=== PATIENT | female | born 1960 | race Caucasian/White ===

== ENCOUNTER 2018-10-19 08:40 | Outpatient (CLI) | payer OTHER ==
[2018-10-19] VITALS (13 sets, daily range): BP systolic 93–171; BP diastolic 57–87
[~2018-10-19] VITALS: Ht 154.9 cm; Wt 72.6 kg
[2018-10-19] MEDS ORDERED: IBUP-1027 PO (08:59)
[2018-10-19] MEDS ORDERED: ASPI-630 PO (08:59)
[2018-10-19] MEDS ORDERED: ATOR20TA58 PO (08:59)
[2018-10-19] MEDS ORDERED: LISI10TA2 PO (08:59)
[2018-10-19] MEDS ORDERED: NITR0.4T22 SL (08:59)
[2018-10-19 09:11] LABS: RED BLOOD COUNT 4.55 x10^6/uL (3.50-5.40); WHITE BLOOD COUNT 7.3 x10^3/uL (4.0-11.0)
[2018-10-19 09:12] LABS: HEMATOCRIT 42.6 % (36.0-47.0); HEMOGLOBIN 14.4 g/dL (12.0-15.5); RED CELL DISTRIBUTION WIDTH 14.2 % (11.5-14.5)
[2018-10-19 09:21] LABS: CALCIUM 9.1 mg/dL (8.5-10.1); CREATININE 0.7 mg/dL (0.6-1.0); GFR 86.2; POTASSIUM 4.1 mmol/L (3.5-5.1)
[2018-10-19 09:22] LABS: PROTHROMBIN TIME PATIENT 12.9 SEC (11.7-14.0)
[2018-10-19] MEDS ORDERED: IODIXANOL 320 MG/ML 100 ML VIAL. ONE (09:26)
[2018-10-19] MEDS ORDERED: LIDOCAINE 1% Multi-Dose 20 ML VIAL. ONE ×2 (09:26→09:31)
[2018-10-19] MEDS ORDERED: MIDAZOLAM HCL/PF 2 MG/2 ML VIAL. ONE ×2 (09:43→10:02)
[2018-10-19] MEDS ORDERED: HEPARIN for IV BOLUS 10,000 UNIT/10 ML VIAL. ONE (09:43)
[2018-10-19] MEDS ORDERED: VERAPAMIL 5 MG/2 ML VIAL. ONE (09:43)
[2018-10-19] MEDS ORDERED: fentaNYL PF VIAL 100 MCG/2 ML VIAL ONE (09:43)
[2018-10-19] MEDS ORDERED: NITROGLYCERIN 200 MCG/2 ML SYRINGE FOR CATH/VASC LAB. ONE ×2 (09:43→10:35)
--- NOTE | 2018-10-19 09:50 | PDOC ---
MODERATE SEDATION ASSESSMENT RISKS/ALTERNATIVES Risks/Alternatives Risks and alternatives of this type of sedation and procedure discussed with: RISK/ALTERNATIVES: Patient H & P ON CHART H & P H & P on chart and reviewed for co-morbid conditions and appropriate labs. H&P ON CHART: Yes STATUS PREG STATUS ASSESSED: N/A MEDS/ALLERGIES REVIEWED Meds/Allergies Reviewed Medications and Allergies including time and route of recently administered narcotics and sedatives. MEDS/ALLERGIES REVIEWED: Yes ASA RATING ASA RATING: II AIRWAY ASSESSMENT Airway Assessment Airway patency, oral function limitations, presence of caps, crowns, dentures, partials, and ability to extend neck assessed. AIRWAY ASSESSMENT: Yes MALLAMPATI SCORE MALLAMPATI SCORE: II PRE-SEDATION ASSESSMENT PRE-SEDATION ASSESSMENT: Yes DERICK GRANDE MD Oct 19, 2018 09:50
[2018-10-19] MEDS ORDERED: IODIXANOL 320 MG/ML 100 ML VIAL. IART ONE (10:30)
[2018-10-19] MEDS ORDERED: HEPARIN for IV BOLUS 10,000 UNIT/10 ML VIAL. IV ONE (10:30)
[2018-10-19] MEDS ORDERED: NITROGLYCERIN 200 MCG/2 ML SYRINGE FOR CATH/VASC LAB. IART ONE ×2 (10:30)
[2018-10-19] MEDS ORDERED: MIDAZOLAM HCL/PF 2 MG/2 ML VIAL. IV ONE (10:30)
[2018-10-19] MEDS ORDERED: HEPARIN for IV BOLUS 10,000 UNIT/10 ML VIAL. IART ONE (10:30)
[2018-10-19] MEDS ORDERED: fentaNYL PF VIAL 100 MCG/2 ML VIAL IV ONE (10:30)
[2018-10-19] MEDS ORDERED: CONTRAST GIVEN. MC PRN (10:30)
[2018-10-19] MEDS ORDERED: LIDOCAINE 1% PF 2 ML VIAL. INJ ONE (10:30)
[2018-10-19] MEDS ORDERED: LIDOCAINE 1% Multi-Dose 20 ML VIAL. INJ ONE (10:30)
[2018-10-19] MEDS ORDERED: VERAPAMIL 5 MG/2 ML VIAL. IART ONE (10:30)
--- NOTE | 2018-10-19 11:06 | CARD ---
MR#: [id number] Date of Study: 10/19/2018 Ordering Physician: DERICK CHRISTINE, Referring Physician: DERICK CHRISTINE, Tech: Jacey Blair RTR APPROVED REPORT Technologist: Jacey Blair RTR Nurse: Maria T Howell R.N. Procedure(s) performed: Moderate Sedation time: 42 minutes CSHA: 4 Coronary angiography, iFR of the LAD. HISTORY : The patient is a 58 year-old female with a history of . INDICATION The indication(s) include : unstable angina . PROCEDURE NARRATIVE INFORMED CONSENT: After explaining the risks and benefits of the procedure and alternatives, informed consent was obtained. The patient was brought electively to the cardiac catheterization lab. A timeout was performed confi rming the patient's name, date of , procedure, and site of procedure. All necessary personnel w ere wearing the appropriate protective equipment and radiation monitor devices. (See nursing notes for medications administered). ACCESS: The right wrist was sterilely prepped and draped in the usual fashion. The right wrist was infiltrat ed with 1 mL of 2% lidocaine for subcutaneous anesthesia. A 6 [place] Terumo glide sheath was inserte d into the right radial artery without difficulty. CORONARY ANGIOGRAPHY: Right and left coronary angiography was performed using a 6Fr TIG 4.0 catheter. Left ventricular en d diastolic pressure was obtained with a pigtail catheter and pullback was performed after left ventr iculography. All catheter exchanges and advancements were performed over a guidewire. FINDINGS: HEMODYNAMICS: AO: 140/70 LEFT VENTRICULOGRAM: Deferred due to known EF by echo. CORONARY ANGIOGRAPHY: LM is a large caliber vessel with normal angiographic appearance. LAD is a moderate caliber vessel wthat tapers to a small size in the mid segment with a 50% stenosis. D1 is a small caliber vessel with normal angiographic appearance. LCx is a moderate caliber non-dominant vessel with normal angiographic appearance. OM1 is a moderate caliber vessel with normal angiographic appearance. RCA is a large caliber dominant vessel with mild luminal irregularities of up to 20%. RPDA and RPL are small caliber vessels with normal angiographic appearance. INTERVENTIONAL TECHNIQUE: Due to intermediate disease in the LAD with chest pain, an iFR study was performed. Heparin was used for anticoagulation. Through a 6Fr EBU 3.0 guide catheter, a 0.014'' Pressure wire was advanced to t he distal LAD after appropriate normalization and intracoronary NTG administration. An iFR was measur ed at 0.90, therefore further intervention was deferred. Final angiography revealed no evidence of gu marlon or wire related complications. CLOSURE: At case completion the right radial sheath was removed and a Terumo radial band was applied with 11 m l of air. COMPLICATIONS: The patient tolerated the procedure well and there were no immediate complications. Conclusion 1. 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 2. Negative iFR of the LAD at 0.90. Recommendations Aggressive medical therapy. Signed by : Derick Christine, Electronically Approved : 10/19/2018 11:04:36
[2018-10-19] MEDS ORDERED: NITROGLYCERIN SUBLINGUAL 0.4 MG BOTTLE OF 25. SL PRN (11:15)
[2018-10-19] MEDS ORDERED: 0.9 % SODIUM CHLORIDE 10 ML DISP.SYRIN. IV PRN (11:15)
[2018-10-19 13:13] LABS: CHOLESTEROL/HDL RATIO 2.6
[2018-10-19] MEDS ORDERED: RANO500T2 PO (13:31)
--- NOTE | 2018-10-19 13:50 | NUR ---
Discharge Note: CHETNA OLSON Discharge instructions and discharge home medications reviewed with Patient and a copy given. All questions have been answered and understanding verbalized. The following instructions and handouts were given: moderate sedation and radial site care Discontinued lines and drains: Peripheral IV intact. Patient discharged to Home or Self Care withFamily Membervia Wheelchair Prescription for Ranexa given to patient and information packet/coupon.
--- NOTE | 2018-10-19 14:16 | CARD ---
MR#: [id number] Date of Study: 10/19/2018 Ordering Physician: DERICK GRANDE, Referring Physician: DERICK GRANDE, Tech: Ainsley Harrington [facility] APPROVED REPORT EXAM: Two-dimensional and M-mode echocardiogram with Doppler and color Doppler. Other Information Quality : AverageHR: 59bpm Rhythm : NSRTechnically limited study due to body habitus. INDICATION Chest Pain 2D DIMENSIONS RVDd2.3 (2.9-3.5cm)Left Atrium(2D)3.3 (1.6-4.0cm) IVSd1.1 (0.7-1.1cm)Aortic Root(2D)2.7 (2.0-3.7cm) LVDd4.2 (3.9-5.9cm)LVOT Diameter1.9 (1.8-2.4cm) PWd1.1 (0.7-1.1cm)LVDs3.1 (2.5-4.0cm) FS (%) 27.4 %SV41.3 ml LVEF(%)55.1 (>50%) M-Mode DIMENSIONS Left Atrium(MM)2.77 (2.5-4.0cm)Aortic Root2.83 (2.2-3.7cm) Aortic Valve AoV Peak Aureliano.141.0cm/sAoV VTI30.1cm AO Peak GR.7.9mmHgLVOT VTI 17.26cm AO Mean GR.4mmHg Mitral Valve MV E Izkgmjwg78.2cm/sMV DECEL [id number] MV A Mkjrmafc83.9cm/sE/A Ratio0.9 MV A Wykqfbqv162nc TDI Lateral E' P. V11.25cm/sMedial E' P. V10.27cm/s E/Lateral E'6.5E/Medial E'7.1 Tricuspid Valve TR P. Zjsmkqcs769ep/sRAP FPZEIFJC6cxSm TR Peak Gr.62bbTsPSZY13kuCr LEFT VENTRICLE The left ventricle is normal size. There is normal left ventricular wall thickness. The left ventricu lar systolic function is normal and the ejection fraction is within normal range. The Ejection Fracti on is 55-60%. There is normal LV segmental wall motion. Transmitral Doppler flow pattern is Grade I-a bnormal relaxation pattern. RIGHT VENTRICLE The right ventricle is normal size. There is normal right ventricular wall thickness. The right ventr icular systolic function is normal. ATRIA The left atrium size is normal. The right atrium size is normal. The interatrial septum is intact wit h no evidence for an atrial septal defect or patent foramen ovale as noted on 2-D or Doppler imaging. AORTIC VALVE The aortic valve is normal in structure and function. The aortic valve is trileaflet. Doppler and Col or Flow revealed no significant aortic regurgitation. There is no significant aortic valvular stenosi s. MITRAL VALVE The mitral valve is normal in structure and function. There is no evidence of mitral valve prolapse. There is no mitral valve stenosis. Doppler and Color Flow revealed no mitral valve regurgitation note d. TRICUSPID VALVE The tricuspid valve is normal in structure and function. Doppler and Color Flow revealed trace tricus pid regurgitation. The PA pressure was estimated at 21 mmHg. There is no tricuspid valve prolapse or vegetation. There is no tricuspid valve stenosis. PULMONIC VALVE Pulmonic valve not well visualized. GREAT VESSELS The aortic root is normal in size. The ascending aorta is normal in size. The IVC is normal in size a nd collapses >50% with inspiration. PERICARDIAL EFFUSION There is no evidence of significant pericardial effusion. Critical Notification Critical Value: No <Conclusion> The left ventricular systolic function is normal and the ejection fraction is within normal range. Th e Ejection Fraction is 55-60%. There is normal LV segmental wall motion. Doppler and Color Flow revealed trace tricuspid regurgitation. The PA pressure was estimated at 21 mm Hg. Signed by : Derick Grande, Electronically Approved : 10/19/2018 14:14:09
== END 2018-10-19 13:55 | disposition home or self-care (01) ==
LOC: CCL 08:40
PROVIDERS: ATTEND Internal Medicine Cardiovascular Disease
DX: I25.110 Atherosclerotic heart disease of native coronary artery with unstable angina pectoris (principal); I10 Essential (primary) hypertension; E11.9 Type 2 diabetes mellitus without complications; E78.5 Hyperlipidemia, unspecified; Z79.899 Other long term (current) drug therapy; F17.200 Nicotine dependence, unspecified, uncomplicated; Z79.84 Long term (current) use of oral hypoglycemic drugs
CPT/HCPCS: 36415; 80048; 80061; 85027; 85610; 93306; 93454; 93571; 99152; 99153; C1769; C1887; C1892; J1644; J2250; J3010; J3490; Q9967